=== PATIENT | female | born 1935 | race Caucasian/White ===

== ENCOUNTER 2016-12-24 15:20 | Emergency (ER) | payer OTHER, BC ==
[~2016-12-24] VITALS: Ht 162.6 cm; Wt 75.6 kg
[~2016-12-24 15:20] MED LIST: CLARITIN-D 21 TABLET PO; CLARITIN10 MG PO; CO Q-10200 MG PO; DIOVAN HCT 31 TABLET PO; GEMFIBROZIL600 MG PO; GLUCOPHAGE1000 MG PO; GLUCOPHAGE500 MG PO; LEVEMIR FL100 UNITS/ SC; PRAVACHOL40 MG PO; PROTONIX40 MG PO; TIROSINT75 MCG PO; TRADJENTA5 MG PO
[2016-12-24 16:29] LABS: ADD MIUA? YES; BILIRUBIN NEGATIVE; BLOOD NEGATIVE; COLOR YELLOW ((YELLOW)); GLUCOSE (STRIP) NEGATIVE; KETONES NEGATIVE; LEUKOCYTES TRACE; NITRITE NEGATIVE; PROTEIN (STRIP) TRACE; SPECIFIC GRAVITY 1.015 (1.000-1.030); UROBILINOGEN 0.2 MG/DL (0.2-1.0)
[2016-12-24 16:40] LABS: BACTERIA NONE SEEN; CASTS NONE SEEN /LPF; CRYSTALS NONE SEEN; EPITHELIAL CELLS 1+; MUCUS NONE SEEN; PATHOLOGICAL CAST NONE SEEN; RED BLOOD CELLS 0-5 /HPF (0-5); SMALL ROUND CELL NONE SEEN; UCUL ADDED? NO; WHITE BLOOD CELLS 0-5 /HPF (0-5); YEAST-LIKE CELL NONE SEEN
[2016-12-24] MEDS ORDERED: COLACE100 MG PO (18:19)
[2016-12-24 18:34] VITALS: BP 161/80
== END 2016-12-24 18:36 | disposition home or self-care (01) ==
LOC: EME 15:20
PROVIDERS: Nurse Practitioner Family
DX: K59.00 Constipation, unspecified (principal); R10.30 Lower abdominal pain, unspecified; R39.11 Hesitancy of micturition; E11.9 Type 2 diabetes mellitus without complications; E78.5 Hyperlipidemia, unspecified; I10 Essential (primary) hypertension; K21.9 Gastro-esophageal reflux disease without esophagitis; Z87.442 Personal history of urinary calculi; Z79.84 Long term (current) use of oral hypoglycemic drugs; Z87.891 Personal history of nicotine dependence
CPT/HCPCS: 74020; 81003; 93005; 99281; 99284

== ENCOUNTER 2017-03-12 10:51 | Emergency (ER) | payer OTHER, BC ==
[~2017-03-12] VITALS: Ht 165.1 cm; Wt 72.8 kg
[~2017-03-12 10:51] MED LIST changes: +COLACE100 MG PO
[2017-03-12 11:41] LABS: HEMATOCRIT 33.4 % (36.0-46.0); MCH 32.6 PG (29.0-34.0); MCHC 34.4 G/DL (30.0-36.0); MCV 94.6 FL (83-99); MEAN PLAT.VOLUME 9.7 uM^3 (9.5-12.4); PLATELET COUNT 233 K/uL (156-360); RBC DIS.WIDTH-CV 12.3 % (11.8-14.6); RBC DIS.WIDTH-SD 42.8 % (39-53); RED BLOOD COUNT 3.53 M/uL (3.80-5.20); WHITE BLOOD COUNT 3.7 K/uL (4.1-10.2)
[2017-03-12 11:50] LABS: CHLORIDE 102 mEq/L (99-109); POTASSIUM 3.7 mEq/L (3.7-5.4); SODIUM 138 mEq/L (136-147)
[2017-03-12 11:53] LABS: GLUCOSE 149 mg/dL (70-99)
[2017-03-12 11:54] LABS: ANION GAP 11 MEQ/L (2-14)
[2017-03-12 11:55] LABS: TOTAL BILIRUBIN 0.7 mg/dL (0.0-1.0)
[2017-03-12 11:56] LABS: ALKALINE PHOSPHATASE 111 IU/L (3-129); GFR ESTIMATE (CALCULATED) 57 mL/min/
[2017-03-12 11:57] LABS: UREA NITROGEN (BUN) 22 mg/dL (9-23)
[2017-03-12 13:01] LABS: ADD MIUA? YES; BILIRUBIN NEGATIVE; BLOOD NEGATIVE; COLOR YELLOW ((YELLOW)); GLUCOSE (STRIP) NEGATIVE; KETONES NEGATIVE; LEUKOCYTES MODERATE; NITRITE NEGATIVE; PROTEIN (STRIP) NEGATIVE; SPECIFIC GRAVITY 1.013 (1.000-1.030); UROBILINOGEN 0.2 MG/DL (0.2-1.0)
[2017-03-12 13:17] LABS: BACTERIA NONE SEEN /HPF; EPITHELIAL CELLS RARE /HPF; MUCUS NONE SEEN /LPF; RED BLOOD CELLS 0-5 /HPF (0-5); UCUL ADDED? NO
[2017-03-12] MEDS ORDERED: KEFLEX500 MG PO (13:27)
[2017-03-12 14:00] VITALS: BP 127/104
== END 2017-03-12 14:09 | disposition home or self-care (01) ==
LOC: EME 10:51
DX: N39.0 Urinary tract infection, site not specified (principal); R33.9 Retention of urine, unspecified; E11.9 Type 2 diabetes mellitus without complications; E78.5 Hyperlipidemia, unspecified; I10 Essential (primary) hypertension; Z87.442 Personal history of urinary calculi; K21.9 Gastro-esophageal reflux disease without esophagitis; Z87.891 Personal history of nicotine dependence; Z79.84 Long term (current) use of oral hypoglycemic drugs; Z79.4 Long term (current) use of insulin
CPT/HCPCS: 80053; 81003; 85027; 99281; 99284

== ENCOUNTER 2017-03-23 09:56 | Emergency (ER) | payer OTHER, BC ==
[~2017-03-23] VITALS: Ht 162.6 cm; Wt 74.5 kg
[~2017-03-23 09:56] MED LIST changes: +KEFLEX500 MG PO
[2017-03-23] MEDS ORDERED: FLOMAX0.4 MG PO (11:04)
[2017-03-23 11:56] VITALS: BP 120/60
== END 2017-03-23 11:58 | disposition home or self-care (01) ==
LOC: EME 09:56
PROC: 0T9B70Z Drainage of Bladder with Drainage Device, Via Natural or Artificial Opening (ICD-10-PCS; principal; 2017-03-23)
DX: R33.9 Retention of urine, unspecified (principal); N31.9 Neuromuscular dysfunction of bladder, unspecified; I10 Essential (primary) hypertension; E78.5 Hyperlipidemia, unspecified; E11.9 Type 2 diabetes mellitus without complications; Z79.4 Long term (current) use of insulin; Z87.442 Personal history of urinary calculi; Z90.49 Acquired absence of other specified parts of digestive tract; Z90.710 Acquired absence of both cervix and uterus; Z87.891 Personal history of nicotine dependence
CPT/HCPCS: 99281; 99284